=== PATIENT | female | born 1950 | race Caucasian/White ===

== ENCOUNTER → 2016-09-23 08:10 | Outpatient (CLI) | payer MEDICARE, OTHER ==
[2015-10-15 16:00] VITALS: BMI 37.9
[~2016-09-23 08:10] MED LIST: ARAVA10 MG PO; ASCORBIC ACID500 MG PO; ASPIRIN 81 MG E81 MG PO; CALCIUM 600+D T1 TA1 PO; EPIKLOR20 MEQ PO; FOLIC ACID1 MG PO; GLUCOPHAGE500 MG PO; GLUCOTROL 5 MG T5 MG PO; INVOKANA100 MG PO; LIPITOR10 MG PO; LISINOPRIL5 MG PO; LOVAZA1 G PO; MOTRIN800 MG PO; MULTI-DAY VITAM1 TAB PO; NIACIN100 MG PO; NORCO 10/325 TA1 TA1 PO; NORCO 5/325 TAB1 TA1 PO; OXYBUTYNIN CHLOR5 MG PO; PLAQUENIL200 MG PO; PLAVIX75 MG PO; PREDNISONE5 MG PO; PREMPRO 0.3 MG-1 TAB PO; PRILOSEC20 MG PO; RESTORIL15 MG PO; SLOW FE142 MG PO; TREXALL5 MG PO; VITAMIN D31000 UNIT PO; ZESTORETIC 20/21 TAB PO
== END | disposition home or self-care (01) ==
LOC: D.CT 08:10
DX: I73.9 Peripheral vascular disease, unspecified (principal)

== ENCOUNTER → 2016-10-14 07:11 | Outpatient (CLI) | payer MEDICARE, OTHER ==
[2015-10-15 16:00] VITALS: BMI 37.9
== END | disposition home or self-care (01) ==
LOC: D.NM 07:11
DX: Z87.81 Personal history of (healed) traumatic fracture (principal)

== ENCOUNTER → 2017-03-30 16:36 | Outpatient (CLI) | payer MEDICARE, OTHER ==
[2015-10-15 16:00] VITALS: BMI 37.9
== END | disposition home or self-care (01) ==
LOC: D.MAMMO 08:30
DX: C50.411 Malignant neoplasm of upper-outer quadrant of right female breast (principal)

== ENCOUNTER → 2017-04-26 13:45 | Outpatient (CLI) | payer MEDICARE, OTHER | END | disposition home or self-care (01) | LOC: D.LABREF 13:45 | DX: N61.0 Mastitis without abscess (principal) ==

== ENCOUNTER → 2017-09-07 14:37 | Outpatient (CLI) | payer MEDICARE, OTHER ==
[2015-10-15 16:00] VITALS: BMI 37.9
== END | disposition home or self-care (01) ==
LOC: D.MAMMO 09:00
DX: C50.911 Malignant neoplasm of unspecified site of right female breast (principal)

== ENCOUNTER 2018-04-28 12:31 | Inpatient (IN) | payer MEDICARE, OTHER ==
[~2018-04-28] VITALS: Ht 152.4 cm; Wt 81.8 kg
--- NOTE | ~2018-04-28 | EC ---
PATIENT:THI CHINCHILLA DATE OF SERVICE: 04/28/18 SEX: F MEDICAL RECORD: [id number] DATE OF : [birth year] LOCATION:D.M2 D.210 AGE OF PATIENT: 67 ADMISSION DATE: 04/28/18 REFERRING PHYSICIAN: INTERPRETING PHYSICIAN: JOSE CASTANEDA MD ECHOCARDIOGRAM REPORT ECHO CHARGES 4 ECHO COMPLETE Date: 04/28/18 CLINICAL DIAGNOSIS: SOB, BILATERAL LEG PAIN,CLAUDICATION ECHOCARDIOGRAPHIC MEASUREMENTS (adult normal given) AC root (d.<3.7cm) 2.8 cm LV Septum d (<1.2 cm> 1.1 cm Valve Excursion 1.3 cm LV Septum (systole) 1.2 cm Left Atria (s.<4.0cm> 2.9 cm LVPW d(<1.2cm) 1.4 cm RV (d.<2.3cm) 3.5 cm LVPW (sytole) 1.6 cm LV diastole(<5.6CM) 3.9 cm MV E-F(>70mm/sec) cm LV systole 2.7 cm LVOT Diameter 1.5 cm MV exc.(>10mm) 1.7 cm Est.ejection fraction (50-75%) % DOPPLER: LVIT cm/sec A 101 cm/sec E 55.0 cm/sec LA cm/sec RVSP 24 mmHg LVOT 120 cm/sec AOP1/2T m/s Asc. Ao 164 cm/sec RVOT 126 cm/sec RA cm/sec PA 194 cm/sec AV Gradient Peak 10.73mmHg AV Mean 6.12 mmHg AV Area 1.2 cm MV Gradient Peak 12.54mmHg MV Mean 4.26 mmHg MV Area cm COMMENTS: Claims Clerk: 2 BALBINA MÉNDEZ Construction Ironworker: 3 Dr. Lewis TAPE# PACS Pericardial Effusion N DATE OF SERVICE: Adequate 2D, color flow and spectral Doppler, and M-mode. No LVH. LV internal dimension is normal, wall motion is normal. EF is greater than or equal to 55%. Aortic valve is sclerosed without stenosis on Doppler interrogation. Left atrium is normal. Mitral valve shows no prolapse. Trace MR. Right-sided chamber grossly normal. Trace TR. TRANSINT:[id number] Voice Confirmation ID: [id number] DOCUMENT ID: [id number] ECHOCARDIOGRAM REPORT [id number] THI CHINCHILLA GREGORY A MD at 1305 CC: [id number] DICTATION DATE: 04/28/18 1353 MECHANICAL TEST TECHNICIAN: 04/28/18 1359 DIS IN 04/30/18 [place] [id number] [place] [address]
[2018-04-28 14:19] LABS: HEMATOCRIT 34.2 % (36.0-48.0); HEMOGLOBIN 11.5 g/dL (12-16); MCH 31.1 pg (26.0-34.0); MCHC 33.6 g/dL (31.0-37.0); MCV 92.4 fL (80.0-100.0); MEAN PLATELET VOLUME 10.5 fL (7.4-10.4); RBC 3.7 10x6/uL (4.00-5.40); RDW 14.9 % (11.5-14.5); WBC 8.4 10x3/uL (4.8-10.8)
[2018-04-28 14:33] LABS: ALBUMIN 3.1 g/dL (3.4-5.0); BILIRUBIN - TOTAL 0.53 mg/dL (0.2-1.3); CALCIUM 8.4 mg/dL (8.5-10.1); CARBON DIOXIDE 21.6 mmol/L (21.0-32.0); POTASSIUM - SERUM 3.6 mmol/L (3.5-5.1)
[2018-04-28 15:48] VITALS: BP 156/76
[2018-04-28 15:48] LABS: ANION GAP 15.1 mmol/L (8-16); CALCIUM 8.2 mg/dL (8.5-10.1); CARBON DIOXIDE 22.6 mmol/L (21.0-32.0); POTASSIUM - SERUM 3.7 mmol/L (3.5-5.1)
[2018-04-28 15:51] VITALS: BP 156/76; BMI 35.2
[2018-04-28 15:58] LABS: BASOPHILS 0.3 % (0-2); EOSINOPHILS 0.5 % (0-7); HEMATOCRIT 33.6 % (36.0-48.0); HEMOGLOBIN 11.5 g/dL (12-16); IMMATURE GRANULOCYTES 0.9 % (0-5); LYMPHOCYTES 12.8 % (15-50); MCH 31.6 pg (26.0-34.0); MCHC 34.2 g/dL (31.0-37.0); MCV 92.3 fL (80.0-100.0); MEAN PLATELET VOLUME 10.4 fL (7.4-10.4); MONOCYTES 2.8 % (2-11); NEUTROPHILS 82.7 % (40-80); PLATELET COUNT 255 10x3/uL (130-400); RBC 3.64 10x6/uL (4.00-5.40); RDW 14.8 % (11.5-14.5); WBC 7.9 10x3/uL (4.8-10.8)
[2018-04-28 16:00] LABS: APTT 24.9 SECONDS (22.8-39.4); INR 0.99 (0.85-1.17); PROTIME 12.7 SECONDS (11.6-15.0)
[2018-04-28 20:00] VITALS: BP 133/76
[2018-04-28 23:07] LABS: APPEARANCE CLEAR (CLEAR); BILIRUBIN NEGATIVE (NEGATIVE); COLOR YELLOW (YELLOW); GLUCOSE 1000 mg/dL (NEGATIVE); KETONE SMALL mg/dL (NEGATIVE); NITRITE NEGATIVE (NEGATIVE); PROTEIN NEGATIVE (NEGATIVE); SPECIFIC GRAVITY 1.015 (1.005-1.020); UROBILINOGEN NORMAL (NORMAL)
[2018-04-29 04:00] VITALS: BP 165/50
[2018-04-29 05:03] LABS: HEMATOCRIT 30.4 % (36.0-48.0); HEMOGLOBIN 10.2 g/dL (12-16); MCH 30.9 pg (26.0-34.0); MCHC 33.6 g/dL (31.0-37.0); MCV 92.1 fL (80.0-100.0); MEAN PLATELET VOLUME 10.9 fL (7.4-10.4); RBC 3.3 10x6/uL (4.00-5.40); RDW 14.7 % (11.5-14.5); WBC 7.5 10x3/uL (4.8-10.8)
[2018-04-29 08:04] VITALS: BP 141/78
[2018-04-29 10:58] VITALS: BP 139/72
[2018-04-29 11:00] VITALS: Ht 152.4 cm; Wt 81.8 kg
[2018-04-29 15:24] VITALS: BP 142/75
[2018-04-29 21:04] VITALS: BP 144/74
[2018-04-30 05:13] LABS: BASOPHILS 0.6 % (0-2); EOSINOPHILS 1.6 % (0-7); HEMOGLOBIN 10.8 g/dL (12-16); IMMATURE GRANULOCYTES 1.1 % (0-5); LYMPHOCYTES 24.6 % (15-50); MCH 30.8 pg (26.0-34.0); MCHC 32.7 g/dL (31.0-37.0); MEAN PLATELET VOLUME 10.3 fL (7.4-10.4); MONOCYTES 3.4 % (2-11); NEUTROPHILS 68.7 % (40-80); RBC 3.51 10x6/uL (4.00-5.40); RDW 14.8 % (11.5-14.5); WBC 6.2 10x3/uL (4.8-10.8)
[2018-04-30 05:15] LABS: PLATELET COUNT 242 10x3/uL (130-400)
[2018-04-30 05:22] LABS: CALCIUM 7.8 mg/dL (8.5-10.1); CARBON DIOXIDE 23.3 mmol/L (21.0-32.0); CHLORIDE - SERUM 110 mmol/L (98-107); CREATININE - SERUM 0.8 mg/dL (0.6-1.3); POTASSIUM - SERUM 3.7 mmol/L (3.5-5.1); SODIUM 142 mmol/L (136-145); eGFR NON AFRICAN AMERICAN 75 mL/min (90-120)
[2018-04-30 05:27] LABS: CALC OSMOLALITY 283 mosm/kg (275-300); GLUCOSE 97 mg/dL (74-106); UREA NITROGEN 15 mg/dL (7-18)
[2018-04-30 05:48] VITALS: BP 142/72
[2018-04-30 08:16] LABS: FOLATE (FOLIC ACID) - SERUM >20.0 ng/mL (>3.0)
[2018-04-30] MEDS ORDERED: ELIQUIS5 MG PO (10:56)
[2018-04-30 11:40] LABS: BASOPHILS 0.6 % (0-2); EOSINOPHILS 1.4 % (0-7); HEMATOCRIT 32.8 % (36.0-48.0); HEMOGLOBIN 10.8 g/dL (12-16); IMMATURE GRANULOCYTES 1.5 % (0-5); LYMPHOCYTES 20.3 % (15-50); MCH 30.9 pg (26.0-34.0); MCHC 32.9 g/dL (31.0-37.0); MEAN PLATELET VOLUME 10.3 fL (7.4-10.4); MONOCYTES 5.3 % (2-11); NEUTROPHILS 70.9 % (40-80); PLATELET COUNT 245 10x3/uL (130-400); RBC 3.49 10x6/uL (4.00-5.40); WBC 7.2 10x3/uL (4.8-10.8)
[2018-04-30 14:36] LABS: HEMATOCRIT 30.5 % (36.0-48.0); HEMOGLOBIN 10.1 g/dL (12-16); MCH 30.6 pg (26.0-34.0); MCHC 33.1 g/dL (31.0-37.0); MCV 92.4 fL (80.0-100.0); RBC 3.3 10x6/uL (4.00-5.40); RDW 14.9 % (11.5-14.5); WBC 7.1 10x3/uL (4.8-10.8)
[2018-05-03 20:08] LABS: FACTOR II DNA ANALYSIS Negative (())
== END 2018-04-30 15:30 | disposition home or self-care (01) | DRG 300 ==
LOC: D.ECHO 12:31 → D.M2 14:41
PROVIDERS: Internal Medicine Cardiovascular Disease; Internal Medicine Hematology & Oncology; Internal Medicine Nephrology
DX: I82.403 Acute embolism and thrombosis of unspecified deep veins of lower extremity, bilateral (principal); D68.59 Other primary thrombophilia; N17.9 Acute kidney failure, unspecified; E11.51 Type 2 diabetes mellitus with diabetic peripheral angiopathy without gangrene; I10 Essential (primary) hypertension; E78.5 Hyperlipidemia, unspecified; I25.10 Atherosclerotic heart disease of native coronary artery without angina pectoris; D64.9 Anemia, unspecified; Z85.3 Personal history of malignant neoplasm of breast; M06.9 Rheumatoid arthritis, unspecified

== ENCOUNTER 2018-05-30 20:37 | Inpatient (IN) | payer MEDICARE, OTHER ==
[~2018-05-30] VITALS: Ht 152.4 cm; Wt 81.8 kg
--- NOTE | ~2018-05-30 | EC ---
PATIENT:THI CHINCHILLA DATE OF SERVICE: 05/31/18 SEX: F MEDICAL RECORD: [id number] DATE OF : [birth year] LOCATION:[facility] AGE OF PATIENT: 67 ADMISSION DATE: 05/31/18 REFERRING PHYSICIAN: INTERPRETING PHYSICIAN: YUKI TRISTAN MD ECHOCARDIOGRAM REPORT ECHO CHARGES 4 ECHO COMPLETE Date: 05/31/18 CLINICAL DIAGNOSIS: POST CODE X 2/SEPTIC, ASSES FOR VEGATTIONS ECHOCARDIOGRAPHIC MEASUREMENTS (adult normal given) AC root (d.<3.7cm) 3.4 cm LV Septum d (<1.2 cm> 1.6 cm Valve Excursion 1.2 cm LV Septum (systole) 1.7 cm Left Atria (s.<4.0cm> 4.0 cm LVPW d(<1.2cm) 1.2 cm RV (d.<2.3cm) 3.3 cm LVPW (sytole) 1.6 cm LV diastole(<5.6CM) 4.3 cm MV E-F(>70mm/sec) cm LV systole 2.9 cm LVOT Diameter 1.8 cm MV exc.(>10mm) 1.2 cm Est.ejection fraction (50-75%) % DOPPLER: LVIT cm/sec A 31.0 cm/sec E 103 cm/sec LA cm/sec RVSP 28 mmHg LVOT 86 cm/sec AOP1/2T m/s Asc. Ao 121 cm/sec RVOT 77 cm/sec RA cm/sec PA 115 cm/sec AV Gradient Peak 5.82 mmHg AV Mean 2.86 mmHg AV Area 2.0 cm MV Gradient Peak 4.23 mmHg MV Mean 1.72 mmHg MV Area cm COMMENTS: Police Liaison: Dhruv MÉNDEZ Sap Hana Architect: 2 Dr. Chowdhury TAPE# PACS Pericardial Effusion N DATE OF SERVICE: 05/31/2018 PROCEDURE: Echocardiogram. FINDINGS: 1. Left ventricular chamber size is within normal limits. Left ventricular systolic function is normal. Overall ejection fraction estimated at 55%. 2. Left atrium is upper limits of normal at 4.0 cm. Right atrium and right ventricular chamber sizes are upper limits of normal to mildly dilated. 3. Valvular structures have normal structure and motion. ECHOCARDIOGRAM REPORT [id number] THI CHINCHILLA A 4. Doppler interrogation reveals mild tricuspid regurgitation, no other valvular insufficiency or stenosis. Pulmonary systolic pressure is estimated 28 mmHg. 5. No evidence of pericardial effusion or left ventricular thrombus. TRANSINT:[id number] Voice Confirmation ID: [id number] DOCUMENT ID: [id number] YUKI TRISTAN MD at 1235 CC: [id number] DICTATION DATE: 05/31/18 1121 ANALYST PROGRAMMER: 05/31/18 1135 DIS IN 05/31/18 [place] [id number] [place] [id number]
--- NOTE | ~2018-05-30 | OP ---
PATIENT NAME: THI CHINCHILLA MEDICAL RECORD: [id number] :48 LOCATION:.[facility] D.2312 ADMISSION DATE:05/31/18 SURGEON: SAWYER BLANCO MD DATE OF OPERATION: 05/31/2018 PREOPERATIVE DIAGNOSES: 1. Septic shock. 2. Cardiopulmonary arrest. 3. Ventilatory failure. 4. Need of additional IV access. POSTOPERATIVE DIAGNOSES: 1. Septic shock. 2. Cardiopulmonary arrest. 3. Ventilatory failure. 4. Need of additional IV access. PROCEDURE: Insertion of right groin triple lumen central venous catheter. SURGEON: Sawyer Blanco MD LEGAL RECOVERY SPECIALIST: None. BLOOD LOSS: Minimal. ANESTHESIA: Local. COMPLICATIONS: None. The risks of the procedure could not be explained to the patient as she is comatose. This was an emergency procedure. No family members were available to give consent. The entire procedure was performed in presence of a female nurse. The patient had recently suffered a cardiopulmonary arrest. The right groin was sterilely prepped and draped. A local anesthetic was used to infiltrate skin and subcutaneous tissue of the right groin. The right common femoral vein was percutaneously accessed in an antegrade fashion. A guidewire passed easily. A small skin hellen was accomplished. A vessel dilator was used to dilate a subcutaneous tract. A 16 cm triple lumen central venous catheter was inserted to the hub. It was sutured in place times 3. All lumens were flushed easily and aspirated dark, nonpulsatile blood. No x-ray was necessary. I told the nurses they could begin using the central venous line immediately. Due to profound hypotension, I was asked to place an arterial line. I percutaneously accessed the right common femoral artery several times. I could not get a guidewire to thread very far and this may be due to arterial occlusive disease. This approach was abandoned. The patient was found to be profoundly acidotic. Prior to further attempts at arterial line placement, the patient . TRANSINT:[id number] Voice Confirmation ID: [id number] DOCUMENT ID: [id number] OPERATIVE REPORT [id number] THI CHINCHILLA SAWYER BLANCO MD at 0039 CC: [id number] DICTATION DATE: 05/31/18 1556 CAMERA REPAIRMAN: 05/31/18 1645 DIS IN 05/31/18 [facility] [address] [facility] [place] [address]
--- NOTE | ~2018-05-30 | CN ---
PATIENT NAME:THI CHINCHILLA MEDICAL RECORD: [id number] : [birth year] LOCATION:[facility].2312 ADMIT DATE: 05/31/18 ACCOUNT: [id number] CONSULTING PHYSICIAN: LUZ DAVIS MD REFERRING PHYSICIAN: GIULIANO COVINGTON MD DATE OF CONSULTATION: 05/31/2018 CONSULT REQUESTING PHYSICIAN: Giuliano Covington MD REASON FOR CONSULTATION: Vent management, septic shock, cardiopulmonary arrest. HISTORY OF PRESENT ILLNESS: Ms. Chinchilla is a 67-year-old female, now she is orally intubated and unresponsive. The patient was brought into the ER with acute nausea, vomiting, and diarrhea. Heart condition declined and she went into cardiac arrest with pulseless electrical activity. The patient was resuscitated and intubated, brought to the ICU. While in the ICU, pio green was called times 3. The last one was attended by me. The patient was in pulseless electrical activity given a dose of epinephrine, calcium gluconate and an ampule of bicarbonate. The patient's pulse was brought back, but the patient was in tachycardia, heart beat from 140 to 150. The patient is unresponsive throughout this process. REVIEW OF SYSTEMS: The detail is not obtainable. PAST MEDICAL HISTORY: 1. Diabetes mellitus. 2. Hypertension. 3. Coronary artery disease. 4. History of right breast lumpectomy. 5. Rheumatoid arthritis. PAST SURGICAL HISTORY: 1. Foot surgery. 2. Left shoulder surgery. 3. Femoral popliteal bypass. 4. Left breast lumpectomy. 5. Knee scope surgery. ALLERGIES: SHE IS ALLERGIC TO SULFA AND LATEX. PRESENT MEDICATIONS: She is on Zosyn IV, vancomycin IV, Levaquin IV. She is on Levophed. Her other medication on the Qnary is reviewed. PERSONAL AND SOCIAL HISTORY: The detail is not obtainable. FAMILY HISTORY: Noncontributory. PHYSICAL EXAMINATION: GENERAL: Now, the patient is orally intubated and sedated. VITAL SIGNS: The blood pressure is 79-125/87, pulse is 126 to 140, temperature is 101.5, SpO2 is 94%. She is on assist controlled mechanical ventilation. HEENT: Conjunctiva is pink. The sclerae is not icteric. NECK: Supple. There is elevated JVD. CHEST: There are bilateral crackles. No wheezing. HEART: The rate and rhythm is regular. There are no murmurs. CONSULT REPORT [id number] THI CHINCHILLA SKIN: There is cellulitis of the right breast. EXTREMITIES: No cyanosis, no clubbing and 1+ pedal edema. CENTRAL NERVOUS SYSTEM: The patient is unresponsive and orally intubated. CHEST RADIOGRAPH: The endotracheal tube is good position. There is small right pleural effusion with increased interstitial airspace disease. IMAGING: CTA of the chest; there is a renal cyst. There was no PE. There are nonspecific bilateral peripheral stranding with delayed excretion. There is large cystic lesion of the kidney. There is hepatomegaly. There is cholelithiasis. OTHER LABORATORY DATA: CBC: WBC is 9.6, hemoglobin 10, and hematocrit 32, the platelet count 224, neutrophils are 79%. CHEMISTRY: Sodium 148, potassium 4.1, bicarbonate is 10.5, BUN is 21, creatinine 2.3. The lactic acid is 8.2, magnesium 1.1, AST is 161, ALT is 94. CK is 4715; MB is 54.8. Troponin is 0.26. Amylase is 201. IMPRESSION: 1. Acute respiratory failure. 2. Cardiopulmonary arrest times 4 with a pulseless electrical activity. 3. Septic shock. 4. Metabolic acidosis consistent with lactic acidosis. 5. Acute renal failure. 6. Elevated cardiac enzymes, possible stress related, possible myocardial infarction. 7. Elevated liver enzymes with shock liver. 8. Cellulitis of the right breast. 9. Cholelithiasis. RECOMMENDATION: 1. Continue assist control mechanical ventilation. 2. Correct the metabolic abnormality. Nephrology is on board. 3. Continue vancomycin, Zosyn and Levaquin for cover for MRSA as well as Gram-negative rods. 4. Follow up on labs, chest radiograph. 5. DVT and GI bleed prophylaxis. Considering the patient's cardiopulmonary arrest with pulseless activity times 4, liver failure, renal failure and severe metabolic the prognosis is poor, the family had decided to make the patient DNR. Prolonged discussion with the family, RN and RT. Dr. Covington thank you for involving me in the care of Ms. Chinchilla. TRANSINT:[id number] Voice Confirmation ID: [id number] DOCUMENT ID: [id number] CONSULT REPORT [id number] THI CHINCHILLA MUSHTAQ MD at 1234 CC: [id number] DICTATION DATE: 05/31/18 0957 GORE SEAMER: 05/31/18 1143 DIS IN 05/31/18 [facility] [address] [place] [address]
[~2018-05-30 20:37] MED LIST changes: +ELIQUIS5 MG PO
[2018-05-30 21:39] LABS: BASOPHILS 0.1 % (0-2); EOSINOPHILS 0.3 % (0-7); HEMATOCRIT 33.1 % (36.0-48.0); HEMOGLOBIN 10.9 g/dL (12-16); IMMATURE GRANULOCYTES 0.9 % (0-5); LYMPHOCYTES 15.4 % (15-50); MCH 31.4 pg (26.0-34.0); MCHC 32.9 g/dL (31.0-37.0); MCV 95.4 fL (80.0-100.0); MEAN PLATELET VOLUME 10.2 fL (7.4-10.4); MONOCYTES 3.6 % (2-11); NEUTROPHILS 79.7 % (40-80); PLATELET COUNT 201 10x3/uL (130-400); RBC 3.47 10x6/uL (4.00-5.40); WBC 6.9 10x3/uL (4.8-10.8)
[2018-05-30 22:06] VITALS: BP 82/48
[2018-05-30 22:07] LABS: ALBUMIN 2.8 g/dL (3.4-5.0); ALKALINE PHOSPHATASE 59 U/L (46-116); ALT (SGPT) 52 U/L (10-68); AMYLASE - SERUM 52 U/L (25-115); BILIRUBIN - TOTAL 0.44 mg/dL (0.2-1.3); CALCIUM 7.9 mg/dL (8.5-10.1); CARBON DIOXIDE 18.3 mmol/L (21.0-32.0); CHLORIDE - SERUM 105 mmol/L (98-107); CKMB 2.3 U/L (0.0-3.6); CREATINE KINASE 163 UL (21-215); CREATININE - SERUM 1.2 mg/dL (0.6-1.3); LIPASE 168 U/L (73-393); PROTEIN - SERUM 5.7 g/dL (6.4-8.2); SODIUM 142 mmol/L (136-145); TROPONIN-I 0.048 ng/mL (0.000-0.060); UREA NITROGEN 19 mg/dL (7-18); eGFR NON AFRICAN AMERICAN 47 mL/min (90-120)
[2018-05-30 22:11] LABS: CALC OSMOLALITY 292 mosm/kg (275-300); GLUCOSE 239 mg/dL (74-106)
[2018-05-30 22:12] LABS: POTASSIUM - SERUM 2.8 mmol/L (3.5-5.1)
[2018-05-30 22:17] VITALS: BP 82/48
[2018-05-30 22:31] VITALS: BP 87/55
[2018-05-30 22:41] VITALS: BP 139/97
[2018-05-30 22:50] VITALS: BP 139/97
[2018-05-30 22:59] LABS: APPEARANCE CLEAR (CLEAR); BILIRUBIN NEGATIVE (NEGATIVE); COLOR YELLOW (YELLOW); GLUCOSE NEGATIVE (NEGATIVE); KETONE NEGATIVE (NEGATIVE); NITRITE NEGATIVE (NEGATIVE); PROTEIN TRACE mg/dL (NEGATIVE); SPECIFIC GRAVITY 1.015 (1.005-1.020); UROBILINOGEN NORMAL (NORMAL)
[2018-05-30 23:25] VITALS: BP 169/137
[2018-05-31] VITALS (23 sets, daily range): BP systolic 67–179; BP diastolic 25–111; Ht 152.4 cm; Wt 81.8 kg
[2018-05-31 02:43] LABS: CKMB 8.5 U/L (0.0-3.6)
[2018-05-31 02:45] LABS: CREATINE KINASE 1099 UL (21-215)
[2018-05-31 02:52] LABS: TROPONIN-I 0.136 ng/mL (0.000-0.060)
[2018-05-31 07:18] LABS: BASOPHILS 0.3 % (0-2); EOSINOPHILS 0.5 % (0-7); HEMATOCRIT 32.6 % (36.0-48.0); IMMATURE GRANULOCYTES 0.5 % (0-5); LYMPHOCYTES 29.5 % (15-50); MCH 31.4 pg (26.0-34.0); MCHC 30.7 g/dL (31.0-37.0); MEAN PLATELET VOLUME 10.5 fL (7.4-10.4); MONOCYTES 2.6 % (2-11); NEUTROPHILS 66.6 % (40-80); PLATELET COUNT 224 10x3/uL (130-400); RBC 3.18 10x6/uL (4.00-5.40); RDW 16.3 % (11.5-14.5)
[2018-05-31 07:22] LABS: MCV 102.5 fL (80.0-100.0); WBC 9.6 10x3/uL (4.8-10.8)
[2018-05-31 07:48] LABS: ALBUMIN 2.3 g/dL (3.4-5.0); ALKALINE PHOSPHATASE 69 U/L (46-116); ALT (SGPT) 94 U/L (10-68); AMYLASE - SERUM 201 U/L (25-115); BILIRUBIN - TOTAL 0.34 mg/dL (0.2-1.3); CALC OSMOLALITY 295 mosm/kg (275-300); CALCIUM 7.3 mg/dL (8.5-10.1); CARBON DIOXIDE 10.5 mmol/L (21.0-32.0); CHLORIDE - SERUM 111 mmol/L (98-107); CKMB 54.8 U/L (0.0-3.6); CREATINE KINASE 4715 UL (21-215); CREATININE - SERUM 2.3 mg/dL (0.6-1.3); GLUCOSE 76 mg/dL (74-106); LIPASE 163 U/L (73-393); MAGNESIUM - SERUM 1.1 mg/dL (1.8-2.4); POTASSIUM - SERUM 4.1 mmol/L (3.5-5.1); PROTEIN - SERUM 4.8 g/dL (6.4-8.2); SODIUM 148 mmol/L (136-145); UREA NITROGEN 21 mg/dL (7-18); eGFR NON AFRICAN AMERICAN 22 mL/min (90-120)
[2018-05-31 07:49] LABS: TROPONIN-I 0.262 ng/mL (0.000-0.060)
== END 2018-05-31 10:28 | DRG 871 ==
LOC: D.ER 20:37 → D.ICU 05-31 05:02
PROVIDERS: Family Medicine
PROC: 5A1935Z Respiratory Ventilation, Less than 24 Consecutive Hours (ICD-10-PCS; principal; 2018-05-31)
PROC: 0BH17EZ Insertion of Endotracheal Airway into Trachea, Via Natural or Artificial Opening (ICD-10-PCS; 2018-05-31)
PROC: 06HY33Z Insertion of Infusion Device into Lower Vein, Percutaneous Approach (ICD-10-PCS; 2018-05-31)
DX: A41.9 Sepsis, unspecified organism (principal); R65.21 Severe sepsis with septic shock; J96.01 Acute respiratory failure with hypoxia; J96.02 Acute respiratory failure with hypercapnia; K72.00 Acute and subacute hepatic failure without coma; I21.9 Acute myocardial infarction, unspecified; N17.9 Acute kidney failure, unspecified; L03.115 Cellulitis of right lower limb; E87.2 Acidosis; I46.9 Cardiac arrest, cause unspecified; I10 Essential (primary) hypertension; E11.9 Type 2 diabetes mellitus without complications; I25.10 Atherosclerotic heart disease of native coronary artery without angina pectoris; M06.9 Rheumatoid arthritis, unspecified; K80.20 Calculus of gallbladder without cholecystitis without obstruction; Z66 Do not resuscitate